=== PATIENT | male | born 2000 | race Caucasian/White ===

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

== ENCOUNTER 2019-06-03 14:13 | Emergency (ER) | payer MEDICAID ==
[~2019-06-03] VITALS: Ht 170.2 cm; Wt 63.5 kg
[2019-06-03 14:46] VITALS: BP 116/59; Ht 170.2 cm; Wt 63.5 kg
== END 2019-06-03 16:01 | disposition home or self-care (01) ==
LOC: ED 14:13
DX: R11.2 Nausea with vomiting, unspecified (principal); R19.7 Diarrhea, unspecified; R10.84 Generalized abdominal pain; R63.0 Anorexia; R09.89 Other specified symptoms and signs involving the circulatory and respiratory systems; R68.83 Chills (without fever)
CPT/HCPCS: Q0162